=== PATIENT | male | born 1995 | race Caucasian/White ===

== ENCOUNTER 2018-07-18 21:50 | Emergency (ER) | payer BC, OTHER ==
[2018-07-18 22:02] VITALS: TEMP 98.3
--- NOTE | 2018-07-18 22:46 | XR ---
EXAM: XR Left Ankle Complete, 3 Views CLINICAL HISTORY: ITS.[email or web address] XR Reason: Pain TECHNIQUE: Frontal, lateral and oblique views of the left ankle. COMPARISON: No relevant prior studies available. FINDINGS: Bones/joints: Joint effusion is suggested. No evidence of fracture or dislocation. Ankle mortise appears intact. Soft tissues: Soft tissue swelling. IMPRESSION: Joint effusion is suggested. No evidence of fracture or dislocation.
--- NOTE | 2018-07-18 22:48 | XR ---
EXAM: XR Left Foot Complete, 3 Views CLINICAL HISTORY: ITS.REASON XR Reason: Pain TECHNIQUE: Frontal, lateral and oblique views of the left foot. COMPARISON: No relevant prior studies available. FINDINGS: Bones/joints: Unremarkable. No acute fracture. No dislocation. Soft tissues: Soft tissue swelling at the ankle. Soft tissue swelling also seen of the foot. No radiopaque foreign body. IMPRESSION: No acute fracture.
--- NOTE | 2018-07-18 22:49 | ED ---
Lower Extremity Injury HPI - General Source: patient, RN notes reviewed, old records reviewed Mode of arrival: ambulatory Limitations: no limitations <Rubi Nash - Last Filed: 07/18/18 22:52> <Elizabeth Ortiz - Last Filed: 07/18/18 23:46> - General Chief Complaint: Extremity Injury, Lower Stated Complaint: Foot injury Time Seen by Provider: 07/18/18 22:04 - History of Present Illness Initial Comments: Patient is a 22-year-old male presents emergency room today with complaints of left ankle pain and swelling after he twisted his ankle while playing hockey. Patient reports that he everted the foot and ankle with an escape. Patient states that he's had pain with bearing weight. He states that he's had previous ankle fractures but does not merit that was this left foot. Patient states that he has had a previous growth plate injury in regards to one of the ankles. Patient states that he has normal sensation over the foot. He denies any other injury related to his ankle sprains today. (Rubi Nash) - Related Data Previous Rx's Medication Instructions Recorded Ibuprofen [Motrin] 600 mg PO Q8HR PRN #20 tab 07/18/18 Allergies Allergy/AdvReac Type Severity Reaction Status Date / Time YELLOW PEPPERS Allergy Rash/Hives Uncoded 07/18/18 22:40 Review of Systems ROS Other: All systems not noted in ROS Statement are negative. <Rubi Nash - Last Filed: 07/18/18 22:52> ROS Other: All systems not noted in ROS Statement are negative. <Elizabeth Ortiz P - Last Filed: 07/18/18 23:46> ROS Statement: Those systems with pertinent positive or pertinent negative responses have been documented in the HPI. Past Medical History Past Medical History: No Reported History History of Any Multi-Drug Resistant Organisms: None Reported Past Surgical History: No Surgical Hx Reported Past Psychological History: No Psychological Hx Reported Smoking Status: Never smoker Past Alcohol Use History: None Reported Past Drug Use History: None Reported <Rubi Nash - Last Filed: 07/18/18 22:52> General Exam Limitations: no limitations General appearance: alert, in no apparent distress Head exam: Present: atraumatic, normocephalic, normal inspection Eye exam: Present: normal appearance, PERRL, EOMI. Absent: scleral icterus, conjunctival injection, periorbital swelling ENT exam: Present: normal exam, mucous membranes moist Neck exam: Present: normal inspection. Absent: tenderness, meningismus, lymphadenopathy Respiratory exam: Present: normal lung sounds bilaterally. Absent: respiratory distress, wheezes, rales, rhonchi, stridor Cardiovascular Exam: Present: regular rate, normal rhythm, normal heart sounds. Absent: systolic murmur, diastolic murmur, rubs, gallop, clicks GI/Abdominal exam: Present: soft, normal bowel sounds. Absent: distended, tenderness, guarding, rebound, rigid Extremities exam: Present: normal inspection, full ROM, normal capillary refill. Absent: tenderness, pedal edema, joint swelling, calf tenderness Left Lower Leg exam: Present: normal inspection, full ROM Ankle exam: Present: tenderness (Patient is tenderness and swelling over the medial and lateral malleolus), ecchymosis. Absent: normal inspection, full ROM (Patient has pain on plantar dorsiflexion.) Foot/Toe exam: Present: full ROM, swelling (Patient has swelling extending over the dorsum of the foot.). Absent: normal inspection Back exam: Present: normal inspection Neurological exam: Present: alert, oriented X3, CN II-XII intact Psychiatric exam: Present: normal affect, normal mood Skin exam: Present: warm, dry, intact, normal color. Absent: rash <Rubi Nash - Last Filed: 07/18/18 22:52> <Elizabeth Ortiz - Last Filed: 07/18/18 23:46> - General Exam Comments Initial Comments: 22-year-old male. Alert and oriented. No significant distress. (Rubi Nash) Vital Signs 07/18/18 07/18/18 22:00 23:17 Temperature 98.3 F Pulse Rate 93 76 Respiratory 18 16 Rate Blood Pressure 179/93 133/84 O2 Sat by Pulse 97 96 Oximetry Procedures - Orthopedic Splinting/Casting Injury #1 Side: left Lower Extremity Injury Location: ankle Lower Extremity Immobilizer: AirCast, Eduardo wrap <Rubi Nash - Last Filed: 07/18/18 22:52> Medical Decision Making - Radiology Data Radiology results: report reviewed <Rubi Nash - Last Filed: 07/18/18 22:52> <Elizabeth Ortiz - Last Filed: 07/18/18 23:46> - Medical Decision Making Patient's 22-year-old male with complaints of left ankle pain and swelling after he twisted his ankle while playing hockey. Patient everted the ankle. At this time he has swelling and tenderness over medial and lateral malleolus. X-rays were completed show no fracture. There is evidence of joint effusion. Patient was placed in an Eduardo wrap and ankle stirrup splint. Discussed the Patient should rest ice and elevate the foot and ankle. Return for crutches and anti-inflammatory medication. Discussed close follow-up with orthopedic. All questions answered return parameters were discussed. (Rubi Nash) I was available for consultation in the emergency department. The history and physical exam were done by the midlevel provider. I was consulted for this patient's care. I reviewed the case with the midlevel provider and based on their presentation of the patient, I agree with the assessment, medical decision making and plan of care as documented. (Elizabeth Ortiz) - Radiology Data No fractures of the foot. Ankle x-ray shows joint effusion. No evidence of fracture dislocation. (Rubi Nash) Disposition Is patient prescribed a controlled substance at d/c from ED?: No Time of Disposition: 22:54 <Rubi Nash - Last Filed: 07/18/18 22:52> <Elizabeth Ortiz - Last Filed: 07/18/18 23:46> Clinical Impression: Left ankle sprain Disposition: HOME SELF-CARE Condition: Good Instructions (If sedation given, give patient instructions): Ankle Sprain (ED) Additional Instructions: Patient is advised to close follow-up with primary care physician. Patient should return to the emergency department if any alarming signs or symptoms occur. Recommended following up with orthopedic doctor as well. Rest, ice, and elevate the foot. Patient should take anti-inflammatory medication as prescribed. Prescriptions: Ibuprofen [Motrin] 600 mg PO Q8HR PRN #20 tab PRN Reason: Pain Referrals: None,Stated [Primary Care Provider] - 1-2 days Zacarias Banuelos DO [Doctor of Osteopathic Medicine] - 1-2 days
[2018-07-18] MEDS ORDERED: IBUPROFEN 600 MG STARTER PACK 4 TAB BTL PO STA (22:55)
[2018-07-18 23:17] VITALS: BP 133/84; PULSE 76; RESP 16
== END 2018-07-18 23:17 | disposition home or self-care (01) ==
LOC: EC 21:50
DX: S93.402A Sprain of unspecified ligament of left ankle, initial encounter (principal); Z91.09 Other allergy status, other than to drugs and biological substances; Z87.81 Personal history of (healed) traumatic fracture; Z87.828 Personal history of other (healed) physical injury and trauma; X50.1XXA Overexertion from prolonged static or awkward postures, initial encounter; Y93.22 Activity, ice hockey
CPT/HCPCS: 29515; 99284

== ENCOUNTER → 2018-08-07 | Outpatient (CLI) | payer OTHER ==
--- NOTE | 2018-08-10 10:03 | MR ---
MR left ankle and left foot HISTORY: Left ankle pain Multiplanar multisequence imaging through the left ankle and left foot Correlation to plain film 07/18/2018 There is an ankle joint effusion. Subcutaneous edema is also present laterally. The Achilles tendon, plantar aponeurosis, peroneal longus and brevis tendons, flexor and extensor tendons are intact. No e vident fracture or dislocation. Some marrow edema present at the posterior aspect of the distal fibul a at the level of the tibiotalar joint. Articular cartilage signal is maintained. Anterior talofibular ligament is disrupted. There is fluid signal present at this level. Soft tissue edema compatible with high ankle sprain. Soft tissue edema along the interosseous membrane. Anterior inferior tibial fibular ligament and posterior inferior tibiofibular ligaments are thin homogeneous s uggesting mild to moderate sprains. IMPRESSION: Anterior talofibular ligament disruption. Additional ligament sprains as described.
== END | disposition home or self-care (01) ==
LOC: RADMRIMAIN 20:02
PROVIDERS: ATTEND Physician Assistant
DX: S93.402A Sprain of unspecified ligament of left ankle, initial encounter (principal)

== ENCOUNTER → 2020-03-31 | Outpatient (CLI) | payer OTHER | END | disposition home or self-care (01) | LOC: LABWHC1 14:24 | PROVIDERS: ATTEND Family Medicine | DX: Z20.828 Contact with and (suspected) exposure to other viral communicable diseases (principal) | CPT/HCPCS: U0003; C9803 ==

== ENCOUNTER → 2021-03-12 | Outpatient (CLI) | payer OTHER ==
--- NOTE | 2021-03-12 11:23 | XR ---
EXAMINATION TYPE: XR chest 2V DATE OF EXAM: 03/12/2021 COMPARISON: Chest x-ray 03/13/2012 HISTORY: S23.3XXA S29.012A TECHNIQUE: Frontal and lateral views of the chest are obtained. FINDINGS: There is no focal air space opacity, pleural effusion, or pneumothorax seen. The cardiac silhouette size is within normal limits. There is overlying artifact. The osseous structures are in tact. IMPRESSION: No acute cardiopulmonary process.
--- NOTE | 2021-03-12 11:24 | XR ---
Thoracic spine HISTORY: Trauma and pain, S23.3XXA S29.012A Frontal lateral views of the thoracic spine submitted on 3 images There is a slight spinal curvature. Thoracic vertebral bodies show preserved height, alignment, bone mineralization. There is mild multilevel spondylosis. Disc spaces are maintained. IMPRESSION: No acute fracture or subluxation. There is thoracic spondylosis present.
== END | disposition home or self-care (01) ==
LOC: RADXRMAIN 10:24
PROVIDERS: ATTEND Emergency Medicine
DX: M47.814 Spondylosis without myelopathy or radiculopathy, thoracic region (principal)
CPT/HCPCS: 71046; 72072